=== PATIENT | female | born 1990 | race Two or more races ===

== ENCOUNTER 2020-05-31 12:34 | Emergency (ER) | payer BC ==
[~2020-05-31] VITALS: Ht 147.3 cm; Wt 63.5 kg
[2020-05-31 12:55] VITALS: BP 119/86
--- NOTE | 2020-05-31 13:23 | NUR ---
COVID19 TESTING DONE & SENT TO LAB.
== END 2020-05-31 13:23 | disposition home or self-care (01) ==
LOC: ER 12:34
DX: J06.9 Acute upper respiratory infection, unspecified (principal); R50.9 Fever, unspecified; Z20.828 Contact with and (suspected) exposure to other viral communicable diseases
CPT/HCPCS: 99283; C9803; U0003

== ENCOUNTER 2020-09-17 17:54 | Emergency (ER) | payer BC ==
[~2020-09-17] VITALS: Ht 147.3 cm; Wt 61.2 kg
--- NOTE | 2020-09-17 18:00 | NUR ---
BIB SELF C/O SOB STARTED 1300H. SEEN IN URGENT CARE ADVISED TO GO TO ER. TO ER BED 7, HOOKED TO [employer] MANA[facility], BP CUFF AND POX, CHANGED TO HOSP GOWN, WARM BLANKET PROVIDED, PATIENT AAOx 4, PATIENT STATES MID CHEST PAIN 6/10 PS. PAIN UPON INSPIRATION, NAD NOTED, AWAITING MD VELASQUEZ.
--- NOTE | 2020-09-17 18:03 | NUR ---
DR FIELDS AT BEDSIDE
[2020-09-17] MEDS ORDERED: KETOROLAC TROMETHAMINE INJ 30 MG/ML VIAL ONE (18:18)
[2020-09-17 18:23] LABS: BASOPHILS # (AUTO) 0.1 /CMM (0.0-0.2); BASOPHILS % (AUTO) 0.8 % (0.0-2.0); EOSINOPHILS % (AUTO) 0.3 % (0.0-6.0); HEMATOCRIT 42 % (33-45); HEMOGLOBIN 14.2 g/dL (11.5-14.8); LYMPHOCYTES # (AUTO) 1.9 /CMM (0.8-4.8); LYMPHOCYTES % (AUTO) 17.9 % (20.0-44.0); MEAN CORPUSCULAR HGB CONC 34 g/dl (31.0-36.0); MEAN CORPUSCULAR VOLUME 93 fL (82-100); MONOCYTES # (AUTO) 0.8 /CMM (0.1-1.30); MONOCYTES % (AUTO) 7.4 % (2.0-12.0); NEUTROPHILS # (AUTO) 7.8 /CMM (1.8-8.9); NEUTROPHILS % (AUTO) 73.6 % (43.0-81.0); PLATELET COUNT (AUTO) 327 /CMM (150-450); RED BLOOD CELL COUNT(AUTO) 4.51 MIL/uL (4.0-5.2); WHITE BLOOD COUNT (AUTO) 10.6 K/uL (4.3-11.0)
--- NOTE | 2020-09-17 18:23 | NUR ---
PATIENT STATES "I'M NOT ". LMP 09/15/2020.
[2020-09-17] MEDS: KETOROLAC TROMETHAMINE INJ 30 MG/ML VIAL IV ONE (18:27)
[2020-09-17 18:31] LABS: CALCIUM, SERUM 9.3 mg/dL (8.5-10.1); CARBON DIOXIDE 28 mmol/L (21-32); CHLORIDE 101 mmol/L (98-107); CREATININE 0.8 mg/dL (0.6-1.3); GLUCOSE 96 mg/dL (74-106); POTASSIUM 3.1 mmol/L (3.5-5.1); SODIUM SERUM 136 mmol/L (136-145); UREA NITROGEN, BLOOD 11 mg/dL (7-18)
--- NOTE | 2020-09-17 18:31 | NUR ---
RAPID COVID SWAB DONE AND SENT TO LAB
--- NOTE | 2020-09-17 18:57 | NUR ---
COVID Negative per Jozef from Laboratory
--- NOTE | 2020-09-17 19:12 | NUR ---
REPORT GIVEN TO NINA AIKEN FOR BARRIE
[2020-09-17] MEDS ORDERED: IOHEXOL-350 100 ML VIAL IV ONE (19:39)
[2020-09-17] MEDS ORDERED: IV NS 0.9% 250 ML IV ONE (19:39)
--- NOTE | 2020-09-17 19:51 | NUR ---
PT RETURNED FROM CT
--- NOTE | 2020-09-17 20:56 | NUR ---
Patient discharged to home in stable condition. Written and verbal after care instructions given. Patient verbalizes understanding of instruction. IV removed. Catheter intact and site benign. Pressure and 4x4 applied to site. No bleeding noted.
[2020-09-17 20:57] VITALS: BP 139/80
== END 2020-09-17 20:58 | disposition home or self-care (01) ==
LOC: ER 17:56
DX: R07.81 Pleurodynia (principal); R00.0 Tachycardia, unspecified; R79.1 Abnormal coagulation profile; Z20.828 Contact with and (suspected) exposure to other viral communicable diseases
CPT/HCPCS: 36415; 71045; 71275; 80048; 84484; 84702; 85025; 85378; 87426; 93005; 96374; 99285; C9803; J1885; J7050; Q9967